=== PATIENT | female | born 1975 ===

== ENCOUNTER 2018-09-09 22:03 | Emergency (ER) | payer SELFPAY ==
[2018-09-09 22:51] VITALS: BP 138/76; PULSE 88; RESP 16; TEMP 98.8; O2SAT 98; BMI 27.7
--- NOTE | 2018-09-09 23:49 | ED PDOC ---
HPI: CCC, URI, Sore Throat Time Seen by Provider: 09/09/18 23:16 Chief Complaint (Nursing): Cough, Cold, Congestion Chief Complaint (Provider): Clear drainage from nose, cough, sneezign History Per: Patient History/Exam Limitations: no limitations Have you had recent travel within the past 21 days to any of the following countries: [place], [place], [place] or [place]?: No Onset/Duration Of Symptoms: Days (2) Current Symptoms Are (Timing): Still Present Location Of Pain: Throat Sick Contacts (Context): None Associated Symptoms: Sore Throat (Irritated ), Cough (dry), Sinus Drainage (CLear ). denies: Fever, Chills, Sputum, Myalgias, Nasal Congestion Additional Complaint(s): 43 yo female wiht no medical problems presents for evaluation of clear drainage from nose, scratchy throat, dry cough and sneezing for 2 days. PT states she took 2 different medications for colds but they did not help much. PT denies fever/chills. Past Medical History Reviewed: Historical Data, Nursing Documentation, Vital Signs Vital Signs: Last Vital Signs Temp 98.8 F 09/09/18 22:51 Pulse 88 09/09/18 22:51 Resp 16 09/09/18 22:51 BP 138/76 09/09/18 22:51 Pulse Ox 98 09/09/18 22:51 Primary Care Provider: Mahamed Marcano - Medical History PMH: No Chronic Diseases - Surgical History Surgical History: No Surg Hx - Family History Family History: States: No Known Family Hx - Living Arrangements Living Arrangements: With Family - Home Medications Home Medications: Ambulatory Orders Medication Instructions Recorded Loratadine [Claritin] 10 mg PO DAILY #14 tab 09/09/18 Prednisone 50 mg PO ONCE #1 tablet 09/09/18 - Allergies Allergies/Adverse Reactions: Allergies Allergy/AdvReac Type Severity Reaction Status Date / Time No Known Allergies Allergy Verified 09/09/18 22:49 Review of Systems ROS Statement: Except As Marked, All Systems Reviewed And Found Negative Constitutional: Negative for: Fever, Chills ENT: Positive for: Throat Pain, Other (sneezing) Respiratory: Positive for: Cough. Negative for: Pleuritic Pain, Sputum, Wheezing Physical Exam - Reviewed Nursing Documentation Reviewed: Yes Vital Signs Reviewed: Yes - Physical Exam Appears: Positive for: Well, Non-toxic, No Acute Distress Head Exam: Positive for: ATRAUMATIC, NORMAL INSPECTION, NORMOCEPHALIC Skin: Positive for: Normal Color, Warm, DRY Eye Exam: Positive for: Normal appearance ENT: Positive for: Normal ENT Inspection, Pharynx Is, TM Is/Are Neck: Positive for: Normal, Painless ROM Cardiovascular/Chest: Positive for: Regular Rate, Rhythm Respiratory: Positive for: Normal Breath Sounds. Negative for: Respiratory Distress, Plerual Rub Back: Positive for: Normal Inspection Extremity: Positive for: Normal ROM Neurological/Psych: Positive for: Awake, Alert, Normal Tone - ECG O2 Sat by Pulse Oximetry: 98 Disposition - Clinical Impression Clinical Impression: Seasonal allergies - Disposition Disposition: Routine/Home Disposition Time: 23:50 Condition: GOOD Prescriptions: Loratadine [Claritin] 10 mg PO DAILY #14 tab Prednisone 50 mg PO ONCE #1 tablet Instructions: Seasonal Allergies in Adults Print Language: BULGARIAN
== END 2018-09-10 00:10 | disposition home or self-care (01) ==
LOC: H.ER 22:03
DX: J30.2 Other seasonal allergic rhinitis (principal)